=== PATIENT | female | born 1985 | race Caucasian/White ===

== ENCOUNTER 2022-12-02 13:16 | Emergency (ER) | payer BC, SELFPAY ==
[2022-12-02 13:25] VITALS: BP 119/75; PULSE 72; RESP 20; TEMP 37; O2SAT 99; BMI 29.7
--- NOTE | 2022-12-02 13:43 | EXP.UTC ---
Discharge Plan Disposition Patient Disposition: Home, Self-Care Condition: Good Prescriptions Prescriptions: No Action fluoxetine 40 mg capsule 40 mg PO DAILY Patient Comments: TAKE 1 CAPSULE BY MOUTH EVERY MORNING lamotrigine 100 mg tablet 100 mg PO DAILY Patient Comments: TAKE 1 TABLET BY MOUTH TWICE DAILY Referrals Follow up/Referrals: Provider,Referral, MD [Primary Care Provider] - See instructions Activity Restrictions/Add. Instructions Additional Instructions/Restrictions: Call tomorrow and make appointment with Family Doctor Return if needed Straight to ER if any worsening of symptoms or pain Do bland diet avoid greasy and spicy foods Clinical Impressions Clinical Impression: Abdominal discomfort Instructions Patient Instructions: Acute Abdominal Pain, DI for Abdominal Pain-Adult Discharge ED Provider: Ariela Weinberg [facility] [place] HPI General Stated complaint: abd pain Mode of Arrival: Ambulatory Source of Information: Patient Limitations: No Limitations Time Seen by Provider: 12/02/22 13:43 Description of Symptoms (Recalled from Triage Doc. by RN): PATIENT C/O UPPER ABDOMINAL PAIN X 1 MONTHS BUT IS WORSE TODAY. SHE DESCRIBES PAIN SHARP AND INTERMITTEN. SHE STATES SHE DOES HAVE SOME NAUSEA WITH IT. DENIES VOMITING AND DIARRHEA. SHE STATES SHE HAS TAKEN ACID REFLUX MEDICATION FOR IT AND IT DOES HELP AT TIMES. PAIN IS SOMETIMES WORSE WITH SITTING. HEENT Symptoms (Recalled from RN notes): No Resp Symptoms (Recalled from RN notes): No Skin Symptoms (Recalled from RN notes): No MS Symptoms (Recalled from RN notes): No Functional Status (Recalled from RN notes): WNL History of Present Illness Provider Complaint: Patient states that she has been having pain in her right upper quad on and off for about a month and half States that at times it is worse than others States that she started taking antacids and it did seem to help some and the pain went away States that for the last couple of days it has been coming and going again worse at times when she sitting States that she is not sure but feels like it feels better at times with what she eats States that today it was still hurting on and off so she came in to get checked Denies radiation anywhere Denies N/V Denies diarrhea Related Data Home Medications Medication Instructions Recorded Confirmed fluoxetine 40 mg capsule 40 mg PO DAILY Anxiety 12/02/22 12/02/22 lamotrigine 100 mg tablet 100 mg PO DAILY Depression 12/02/22 12/02/22 Allergies Allergy/AdvReac Type Severity Reaction Status Date / Time No Known Allergies Allergy Verified 12/02/22 13:38 Worker's Comp Is this a Worker's Comp case?: No [facility] Disclaimer: The information contained in this section may have been updated after the patient was seen, as this information can be updated by other users. Medical History (Updated 12/02/22 @ 14:02 by Ariela Weinberg APRN) Anxiety Depression UTI (urinary tract infection) Surgical History (Updated 12/02/22 @ 13:40 by Batsheva Kwok RN) History of section Social History Smoking Status: Unknown if ever smoked alcohol intake: never current occupational status: employed Travel in the last 8 weeks: None ROS Obtained: Yes All systems reviewed & no additional complaints except as documented and Yes Systems reviewed as appropriate & no additional complaints except as documented Constitutional Constitutional: Reports system reviewed and no additional complaints, except as documented, Reports as per HPI, Denies body ache, Denies chills and Denies fever(s) ENT Ears, Nose, Mouth, and Throat: Reports system reviewed and no additional complaints, except as documented and Reports as per HPI Cardiovascular Cardiovascular: Reports system reviewed and no additional complaints, except as documented and Reports as per HPI Respiratory Respiratory: Reports system reviewed and no additional complaints, except as do
[2022-12-02 14:12] VITALS: BP 119/75; PULSE 72; RESP 20; TEMP 37; O2SAT 99
== END 2022-12-02 14:14 | disposition home or self-care (01) ==
PROVIDERS: Emergency Provider Nurse Practitioner
DX: R10.11 Right upper quadrant pain (principal); F41.9 Anxiety disorder, unspecified; F32.A Depression, unspecified
CPT/HCPCS: 99204; 99212; G0463

== ENCOUNTER → 2022-12-03 16:09 | Outpatient (CLI) | payer BC, SELFPAY ==
[2022-12-03 17:37] LABS: Basophils % 0.5 % (0.1-2.0); Eosinophils # 0.1 K/mm3 (0.0-0.4); Hematocrit 42.4 % (37.0-47.0); Lymphocytes # 1.9 K/mm3 (0.7-4.5); Lymphocytes % 32.9 % (10-50); Mean Corpuscular Hemoglobin 31.8 pg (27.0-31.2); Mean Corpuscular Volume 96.4 fl (81-99); Mean Platelet Volume 7.9 fl (7.4-10.4); Monocytes # 0.3 K/mm3 (0.1-1.0); Monocytes % 5.3 % (1.7-9.3); Neutrophils # 3.4 K/mm3 (1.8-7.8); Neutrophils % 59.3 % (37.0-80.0); Platelet Count 267 K/mm3 (142-424); White Blood Count 5.7 K/mm3 (4.8-10.8)
[2022-12-03 18:46] LABS: Alanine Aminotransferase 22 U/L (12-78); Albumin Level 4.6 g/dl (3.5-5.0); Albumin/Globulin Ratio 1.6 (1.1-1.8); Alkaline Phosphatase 87 U/L (38-126); Anion Gap 13.4 mEq/L (5-15); Aspartate Amino Transferase 23 U/L (14-36); Bilirubin,Total 0.3 mg/dl (0.2-1.3); Blood Urea Nitrogen 15 mg/dl (7-17); Calcium 8.9 mg/dl (8.4-10.2); Carbon Dioxide 31 mmol/L (22.0-30.0); Chloride 101 mmol/L (98-107); Estimated Glomerular Filt Rate 70 ml/min (>60); GFR (African American) 85 ML/MIN (>60); Globulin 2.8 g/dL (1.3-3.2); Glucose 99 mg/dl (74-100); Potassium 4.4 mmoL/L (3.5-5.1); Sodium 141 mmol/L (136-145); Total Protein,Serum 7.4 g/dl (6.3-8.2)
[2022-12-06 18:24] LABS: Lamotrigine (Lamictal) 4.2 ug/mL (2.0-20.0)
== END ==
PROVIDERS: PCP Nurse Practitioner Family; Visit Provider Nurse Practitioner Family
DX: R10.9 Unspecified abdominal pain (principal); F39 Unspecified mood [affective] disorder
CPT/HCPCS: 80053; 80168; 85025; 87086

== ENCOUNTER → 2022-12-05 07:33 | Outpatient (CLI) | payer BC, SELFPAY ==
--- NOTE | 2022-12-05 07:43 | US_ITS ---
FINAL REPORT CLINICAL HISTORY: abd pain FINDINGS: RIGHT UPPER QUADRANT ULTRASOUND Sonographic images of the right upper quadrant were obtained. The pancreas is partially obscured.The liver has an unremarkable appearance. There is a phrygian cap on the gallbladder. There is an echogenic focus within the phrygian cap consistent with a gallstone. A small amount of sludge is present. The common duct is normal. Limited images of the right kidney are normal. IMPRESSION: Gallstone within a phrygian cap with a small amount of sludge. Reviewed, Interpreted and Dictated by Andres Gerber MD Transcribed by Ana Spear Authenticated and [facility]
== END ==
LOC: RAD 07:36
PROVIDERS: PCP Nurse Practitioner Family; Visit Provider Nurse Practitioner Family
DX: R10.9 Unspecified abdominal pain (principal)
CPT/HCPCS: 76705

== ENCOUNTER 2022-12-25 07:42 | Day surgery (SDC) | payer BC, SELFPAY ==
[2022-12-25 08:17] VITALS: BP 117/55; PULSE 71; RESP 18; TEMP 36.7; O2SAT 95; BMI 29.2
--- NOTE | 2022-12-25 08:34 | HMH.SCOPE ---
Procedure: Date: 12/25/22 Patient Date of :: 1985 Procedure Performed:: Esophagogastroduodenoscopy with biopsy Indications:: Gastroesophageal reflux Performing Provider:: Lb Perez MD Referring Provider:: . Sedation:: Monitored anesthesia care Procedure:: After informed consent was obtained the patient was taken to the endoscopy suite. Sedation ensued after the patient was transferred to the left lateral decubitus position. Pulse, blood pressure, and oxygen saturation were monitored throughout the procedure. The endoscope was advanced beyond the duodenal bulb. Retroflexion within the gastric lumen was accomplished. The gastroscope was carefully removed and the patient was transferred to recovery in stable condition. Please see findings and specimens below for detail. Findings:: Gastroesophageal junction at 36 cm Tiny/shallow sliding hiatal hernia Mild streaking distal gastritis Specimens:: Antral biopsy Recommendations:: Follow-up pathology Discussion with regard to cholecystectomy will be ongoing Complications:: No immediate Estimated blood obtained (mL): 1 Colonoscopy Component Colonoscopy Component Was a colonoscopy performed during today's procedure?: No
[2022-12-25 08:44] LABS: Urine Pregnancy, HCG Qual. Negative (Negative)
--- NOTE | 2022-12-25 08:48 | EXP.ANES.CKL ---
[facility] Disclaimer: The information contained in this section may have been updated after the patient was seen, as this information can be updated by other users. Medical History Anxiety Depression UTI (urinary tract infection) Surgical History History of [place] teeth extracted Family History (Updated 12/25/22 @ 08:16 by Rich Call RN) Other Family history of cancer Family history of myocardial infarction Social History (Updated 12/25/22 @ 08:17 by Rich Call RN) Smoking Status: Former smoker alcohol intake: never substance use type: denies use current occupational status: employed Travel in the last 8 weeks: None [facility] Anesthesia Checklist Patient Identification Patient Identification: Verbal (Name & ) Structural Data Admitted From: Home Planned Operative Procedure/s: egd Consent for Planned Operative Procedure(s) Verified: Yes Airway Assessment Mallampati Score:: Class I C-Spine Mobility Assessed: Yes TMJ Mobility Assessed: Yes Dentition: Good Dentition Neurological Assessment Level of Consciousness: Awake, Alert and Appropriate Anesthesia Plan Anesthesia Risk discussed: Yes Anesthesia Plan: Verified ASA Class: I Anesthesia Type: MAC
[2022-12-25 08:52] VITALS: O2SAT 99
[2022-12-25 09:07] VITALS: BP 95/65; PULSE 67; RESP 16; O2SAT 95
[2022-12-25 09:17] VITALS: BP 97/57; PULSE 67; RESP 16; O2SAT 95
[2022-12-25 09:27] VITALS: BP 98/53; PULSE 68; RESP 16; O2SAT 98
[2022-12-25 09:37] VITALS: BP 109/69; PULSE 69; RESP 17; O2SAT 98
== END 2022-12-25 09:40 | disposition home or self-care (01) ==
PROVIDERS: PCP Nurse Practitioner Family; Visit Provider Surgery
PROC: 0DJ08ZZ Inspection of Upper Intestinal Tract, Via Natural or Artificial Opening Endoscopic (ICD-10-PCS; CPT 43235; principal; 2022-12-25 08:30)
DX: K21.9 Gastro-esophageal reflux disease without esophagitis (principal); K31.9 Disease of stomach and duodenum, unspecified; K44.9 Diaphragmatic hernia without obstruction or gangrene
CPT/HCPCS: 43239; 81025

== ENCOUNTER → 2023-01-09 09:19 | Outpatient (CLI) | payer BC, SELFPAY ==
[2023-01-09 09:45] LABS: Basophils % 0.2 % (0.1-2.0); Eosinophils # 0.1 K/mm3 (0.0-0.4); Eosinophils % 1.7 % (0.1-12.0); Hematocrit 41.7 % (37.0-47.0); Hemoglobin 13.3 g/dL (12.2-16.2); Lymphocytes # 1.4 K/mm3 (0.7-4.5); Lymphocytes % 19.6 % (10-50); Mean Corpuscular HGB Conc 31.8 g/dL (31.8-35.4); Mean Corpuscular Hemoglobin 31.5 pg (27.0-31.2); Mean Platelet Volume 6.8 fl (7.4-10.4); Monocytes # 0.3 K/mm3 (0.1-1.0); Monocytes % 4.5 % (1.7-9.3); Neutrophils # 5.4 K/mm3 (1.8-7.8); Platelet Count 206 K/mm3 (142-424); Red Blood Count 4.21 M/mm3 (4.20-5.40); White Blood Count 7.3 K/mm3 (4.8-10.8)
[2023-01-09 09:46] LABS: Urine Pregnancy, HCG Qual. Negative (Negative)
[2023-01-09 10:42] LABS: Alanine Aminotransferase 18 U/L (12-78); Albumin Level 4.4 g/dl (3.5-5.0); Albumin/Globulin Ratio 1.6 (1.1-1.8); Alkaline Phosphatase 72 U/L (38-126); Anion Gap 15.5 mEq/L (5-15); Aspartate Amino Transferase 25 U/L (14-36); Bilirubin,Total 0.4 mg/dl (0.2-1.3); Blood Urea Nitrogen 13 mg/dl (7-17); Calcium 8.8 mg/dl (8.4-10.2); Carbon Dioxide 24 mmol/L (22.0-30.0); Chloride 106 mmol/L (98-107); Estimated Glomerular Filt Rate 80 ml/min (>60); GFR (African American) 97 ML/MIN (>60); Globulin 2.7 g/dL (1.3-3.2); Glucose 108 mg/dl (74-100); Potassium 4.5 mmoL/L (3.5-5.1); Sodium 141 mmol/L (136-145); Total Protein,Serum 7.1 g/dl (6.3-8.2)
== END ==
PROVIDERS: PCP Nurse Practitioner Family; Visit Provider Surgery
DX: R10.9 Unspecified abdominal pain (principal); K80.20 Calculus of gallbladder without cholecystitis without obstruction
CPT/HCPCS: 36415; 80053; 81025; 85025

== ENCOUNTER 2023-01-10 10:57 | Day surgery (SDC) | payer BC, SELFPAY ==
[2023-01-10] VITALS (11 sets, daily range): BP systolic 116–138; BP diastolic 66–84; PULSE 73–100; RESP 14–18; TEMP 36.1–43; O2SAT 94–100; BMI 29.2
--- NOTE | 2023-01-10 11:59 | P.PNANES_ITS ---
[facility] Disclaimer: The information contained in this section may have been updated after the patient was seen, as this information can be updated by other users. Medical History Anxiety Depression UTI (urinary tract infection) Surgical History History of History of esophagogastroduodenoscopy (EGD) [place] teeth extracted Family History Other Family history of cancer Family history of myocardial infarction Social History (Updated 01/10/23 @ 11:12 by Ana Luke RN) Smoking Status: Never smoker alcohol intake: never substance use type: denies use current occupational status: employed Travel in the last 8 weeks: None [facility] Anesthesia Checklist Patient Identification Patient Identification: Arm Band Structural Data Admitted From: Home Planned Operative Procedure/s: Laparoscopic Cholecystectomy Consent for Planned Operative Procedure(s) Verified: Yes Verified Documents: Surgical Consent and History and Physical NPO Status Verified Time NPO: 00:00 Additional verifications Anesthesia Reactions: No Hx Blood Transfusions: No Airway Assessment Mallampati Score:: Class I C-Spine Mobility Assessed: Yes TMJ Mobility Assessed: Yes Dentition: Good Dentition Neurological Assessment Level of Consciousness: Awake and Alert Anesthesia Plan Anesthesia Risk discussed: Yes Anesthesia Plan: Verified ASA Class: I Anesthesia Type: General
--- NOTE | 2023-01-10 14:46 | P.OP_ITS ---
Date of procedure: 01/10/23 Pre-op Diagnosis:: Chronic calculus cholecystitis Post-op Diagnosis:: Same Procedure performed:: Laparoscopic cholecystectomy Surgeon:: Lb Perez MD Anesthesia: GETSal Estimated blood loss (mL): 15 Operative findings:: Severe pericholecystic fat stranding Fairly severe infundibular thickening Operative note:: After informed consent was obtained, the patient was taken to the operating room and placed in the supine position. General anesthesia was induced and the abdomen was prepped and draped in a sterile fashion. After infiltration with local anesthetic an infraumbilical incision was made. A Veress needle was placed in position. The abdomen was insufflated. A 5 mm optical trocar was placed in position. Under direct visualization, a 12 mm trocar was placed in the subxiphoid position and 2 additional 5 mm trocars were placed in the right upper quadrant. The gallbladder was elevated up and over the liver margin. The tissue around the cystic duct was carefully dissected. 3 clips were placed p roximally and the duct was transected with harmonic matthias. Harmonic matthias were then utilized to dissect the gallbladder away from the liver margin with careful attention to the control of the cystic artery. The gallbladder was placed in a retrieval bag and removed through the subxiphoid trocar site. The right upper quadrant was thoroughly irrigated. No active bleeding or bile leak was noted. Fascia at the subxiphoid trocar site was reapproximated utilizing the NeoClose device. The remaining trocars were removed. All wounds were irrigated and skin was closed with 4-0 Monocryl in a subcuticular fashion. Steri-Strips were applied. The patient's anesthetic agents were reversed and extubation was completed prior to transfer to recovery in stable condition. Condition: stable Disposition: PACU Specimens:: Gallbladder and contents Complications:: No immediate
--- NOTE | 2023-01-10 15:21 | P.PNANES_ITS ---
[facility] Anesthesia Record Part I Anesthesia Record I Intake, IV Amount: 1,100 Hydration: Adequate Estimated blood loss (mL): 15 Urine output (mL): 0 Blood Products used (#): none Blood Pressure: 138/84 SaO2: 96 Pulse Rate: 87 Airway Patency: Patent Respiratory Rate: 18 Temperature: 97 F Patient is:: Drowsy and Stable Stable to PACU at:: 14:55
--- NOTE | 2023-01-11 13:39 | P.PNANES_ITS ---
[facility] Anesthesia Record Part II Anesthesia Record Part II Discharge Time: 15:35 Destination: Surgical Day Care (OP Surgery) PACU nurse assessment reviewed?: Yes Patient Condition:: Good Anesthesia Complications:: None Swallowing reflex intact?: Yes Airway Patency: Patent Cyanosis?: No Blood Pressure: 117/75 SaO2: 98 Respiratory Rate: 17 Pulse Rate: 83 Temperature: 97.6 F Mental Status: Alert & Oriented Pain level:: 6 Nausea and/or vomitting:: None Intake, IV Amount: 0 Hydration: Adequate
[2023-01-11 13:40] VITALS: BP 117/75; PULSE 83; RESP 17; TEMP 36.4; O2SAT 98
== END 2023-01-10 16:13 | disposition home or self-care (01) ==
PROVIDERS: PCP Nurse Practitioner Family; Visit Provider Surgery
PROC: 0FT44ZZ Resection of Gallbladder, Percutaneous Endoscopic Approach (ICD-10-PCS; CPT 47562; principal; 2023-01-10 12:15)
DX: K80.10 Calculus of gallbladder with chronic cholecystitis without obstruction (principal)
CPT/HCPCS: 47562; 96374; J2405

== ENCOUNTER 2023-08-21 09:21 | Emergency (ER) | payer BC, SELFPAY ==
[2023-08-21 09:22] VITALS: BP 104/60; PULSE 95; RESP 18; TEMP 36.7; O2SAT 98; BMI 32.2
[2023-08-21 09:30] VITALS: BP 104/60; PULSE 103; O2SAT 97
--- NOTE | 2023-08-21 09:48 | ED_ITS ---
Discharge Plan Disposition Patient Disposition: Home, Self-Care Condition: Good Prescriptions Prescriptions: No Action Classic 28 mg iron- 800 mcg tablet 1 tab PO DAILY fluoxetine 40 mg capsule 40 mg PO DAILY Patient Comments: TAKE 1 CAPSULE BY MOUTH EVERY MORNING lamotrigine 100 mg tablet 100 mg PO BID Patient Comments: TAKE 1 TABLET BY MOUTH TWICE DAILY Referrals Follow up/Referrals: Meme Cali APRN [Primary Care Provider] - See instructions Activity Restrictions/Add. Instructions Additional Instructions/Restrictions: You were evaluated in the ER. You are appropriate for discharge at this time. Continue monitoring for heavy vaginal flow. Take ibuprofen 800 mg every 8 hours for 5 days. This was recommended by our OB for management of your symptoms. Make an appointment with your OB for follow-up within the next week to repeat quantitative hCG. Your quantitative hCG today was 256. Return to the ER with any new, worsening, or otherwise concerning symptoms. Clinical Impressions Clinical Impression: Vaginal bleeding Stand Alone Forms Stand Alone Forms: Work/School Release Instructions Patient Instructions: DI for Vaginal Bleeding Discharge ED Provider: Roc Hassan General Adult HPI General Chief complaint: Vaginal Bleeding Stated complaint: continuous vaginal bleeding Time Seen by Provider: 08/21/23 09:40 History of Present Illness HPI narrative: 38-year-old female G5, P2 presents to the ER with concerns of heavy vaginal bleeding. Patient was approximately 14 weeks and experienced a miscarriage requiring D&C which was performed on August 11 at [facility]. Patient states she has had some vaginal bleeding since that time, it increased in the last 24 hours, and this morning she started passing large, large volume clots. Patient states she is soaking through pads rapidly. She is not having any dizziness or lightheadedness but is having pelvic cramping. No other associated symptoms at this time. Related Data Home Medications Medication Instructions Recorded Confirmed fluoxetine 40 mg capsule 40 mg PO DAILY Anxiety 12/02/22 08/21/23 lamotrigine 100 mg tablet 100 mg PO BID Depression 12/03/22 08/21/23 vits no.126-ferrous fum 1 tab PO DAILY Supplement 12/03/22 08/21/23 28 mg iron-folic acid 800 mcg tablet (Classic ) Allergies Allergy/AdvReac Type Severity Reaction Status Date / Time No Known Allergies Allergy Verified 01/16/23 14:51 [facility] Disclaimer: The information contained in this section may have been updated after the patient was seen, as this information can be updated by other users. Medical History (Updated 08/21/23 @ 11:44 by Roc Hassan MD) UTI (urinary tract infection) Depression Anxiety Surgical History (Updated 01/16/23 @ 14:51 by ABHINAV Ochoa) History of laparoscopic cholecystectomy History of esophagogastroduodenoscopy (EGD) [place] teeth extracted History of Family History Other Family history of cancer Family history of myocardial infarction Social History Smoking Status: Never smoker alcohol intake: never substance use type: denies use current occupational status: employed Travel in the last 8 weeks: None ROS Obtained: Yes All systems reviewed & no additional complaints except as documented Constitutional Constitutional: Denies chills, Denies fever(s), Denies headache(s) and Denies weakness Eyes Eyes: Denies change in vision ENT Ears, Nose, Mouth, and Throat: Denies dizziness, Denies headache(s), Denies nasal congestion and Denies sore throat Cardiovascular Cardiovascular: Denies chest pain, Denies dyspnea and Denies leg edema Respiratory Respiratory: Denies cough and Denies dyspnea Gastrointestinal Gastrointestingal: Denies constipation, diarrhea, nausea or vomiting Genitourinary Female Genitourinary: Denies dysuria, Reports pelvic pain and Reports other (Vaginal bleeding with clots) Musculoskeletal Musculoskeletal: Denies arthralgias, Denies myalgias, Denies numbness and Denies tingling Integumentary/Breasts Skin/Breast: Denies change in pigmentation Neurologic Neurologic: Denies dizziness, Denies headache(s), Denies numbness, Denies tingling and Denies weakness Physical Exam General General appearance: alert and in no apparent distress Head Head exam: atraumatic and normocephalic Eye Eye exam: Present PERRL and EOMI ENT ENT exam: Present mucous membranes moist Neck Neck exam: Present normal inspection and full ROM Chest Chest inspection: Present symmetric chest wall rise Respiratory Respiratory exam: Present normal lung sounds bilaterally; Absent respiratory distress, wheezes or stridor Cardiovascular Cardiovascular exam: Present regular rate and normal rhythm Abdominal Exam Abdominal exam: Present soft and tenderness (Mild suprapubic tenderness); Absent distention, guarding or rebound External exam: Present normal external exam Speculum exam: Present vaginal bleeding (Clots, no brisk red bleeding, no findings of vaginal injury) Extremities Exam Extremities exam: Present full ROM Neurological Exam Neurological exam: Present alert and oriented X3; Absent motor sensory deficit Psychiatric Psychiatric exam: Present normal affect and normal mood Skin Skin exam: Present warm and dry Medical Decision Making Mychal Inquiry Pt receiving controlled substance: No Vital Signs: 08/21/23 09:22 08/21/23 09:30 08/21/23 10:15 Temperature 98.0 F Temperature Source Oral Pulse Rate 103 H 77 Pulse Rate [Right] 95 H Respiratory Rate 18 Blood Pressure 104/60 L 118/75 Blood Pressure [Right Arm] 104/60 L Blood Pressure Mean [Right Arm] 74 Blood Pressure Source [Right Arm] Automatic Cuff 02 Sat by Pulse Oximetry 98 97 96 Oxygen Delivery Method Room Air Room Air Room Air 08/21/23 10:30 08/21/23 11:49 Temperature 98.0 F Temperature Source Pulse Rate 68 68 Pulse Rate [Right] Respiratory Rate 13 Blood Pressure 111/64 111/64 Blood Pressure [Right Arm] Blood Pressure Mean [Right Arm] Blood Pressure Source [Right Arm] 02 Sat by Pulse Oximetry 96 Oxygen Delivery Method Room Air Room Air Lab Data Lab Results 08/21/23 09:34: WBC 7.2, RBC 3.39 L, Hgb 11.0 L, Hct 34.2 L, MCV 100.8 H, MCH 32.5 H, MCHC 32.2, RDW 13.6, Plt Count 413, MPV 7.5, Neut % (Auto) 69.0, Lymph % (Auto) 23.2, Robertson % (Auto) 4.8, Eos % (Auto) 2.4, Baso % (Auto) 0.6, Neut # (Auto) 5.0, Lymph # (Auto) 1.7, Robertson # (Auto) 0.4, Eos # (Auto) 0.2, Baso # (Auto) 0.0, PT 10.2, INR 0.94, APTT 27.1, Sodium 137, Potassium 4.1, Chloride 105, Carbon Dioxide 25, Anion Gap 11.1, BUN 7, Creatinine 0.70, Estimated Creat Clear 127, Estimated GFR 93, Est GFR ( Amer) 113, Glucose 94, Calcium 8.7, Total Bilirubin 0.7, AST 29, ALT 18, Alkaline Phosphatase 87, Total Protein 6.9, Albumin 4.0, Globulin 2.9, Albumin/Globulin Ratio 1.4, HCG, Quant 256 H 08/21/23 10:20: Blood Type A Positive, Antibody Screen Negative 08/21/23 09:34 08/21/23 09:34 Orders (Tests/Meds): ED MEDICATIONS Discontinued Medications Generic Name Dose Route Start Last Admin Trade Name Jacquie PRN Reason Stop Dose Admin Acetaminophen 500 mg 08/21/23 09:50 08/21/23 09:55 Acetaminophen 500mg Tab PO 08/21/23 09:51 500 mg ONCE ONE Administration Ibuprofen 600 mg 08/21/23 09:50 08/21/23 09:55 Ibuprofen 600 Mg Tablet PO 08/21/23 09:51 600 mg ONCE ONE Administration ORDERS Category Date Time Status Type and Screen Stat BBK 08/21/23 10:20 Completed Beta HCG, Quant [HCG,Quantitative] Stat Lab 08/21/23 09:34 Completed CBC w/Auto Diff [Complete Blood Count Auto Diff] Stat Lab 08/21/23 09:34 Completed CMP [Comprehensive Metabolic Panel] Stat Lab 08/21/23 09:34 Completed PT INR [Prothrombin Time INR] Stat Lab 08/21/23 09:34 Completed PTT [Activated Partial Thrombo Time] Stat Lab 08/21/23 09:34 Completed Medical Decision Narrative: In summary, this 38year old female presents to the emergency department today with vaginal bleeding, passage of clots in the setting of recent D&C which is a comorbidity of current condition and increases her overall risk of postoperative complications. On initial evaluation patient is hemodynamically stable, afebrile, resting comfortably, mild suprapubic tenderness without rebound or guarding, nonacute abdomen, vaginal bleeding with blood and clots from the cervical os, no other obvious abnormality on pelvic exam. Differential diagnosis includes but is not limited to postoperative bleeding, anemia, menorrhagia, coagulopathy. Based on these concerns, I ordered basic labs, type and screen, coag studies. Patient received Tylenol, ibuprofen for treatment. Labs personally reviewed demonstrate mild anemia with hemoglobin 11, no actionable abnormalities on CMP, quantitative hCG 256, unfortunately patient does not have a prior hCG available to be viewed either in her [facility], per chart from [facility], or in our system. On reassessment patient continues having some bleeding but is comfortable and states her pain is improved since receiving medications. I discussed this case with Dr. Montenegro with OB. She recommends repeat hcg weekly, expectant management. She explained that she is more concerned about rapid flow than she is with passing clots. She also recommended ibuprofen 800 mg every 8 hours for the next 5 days to help with pain and bleeding. She recommended 1 week follow- up with patient's OB or to return here. She also gave recommendations for the patient to return if she becomes symptomatic such as lightheaded, short of breath. I explained all these recommendations to the patient and placed them in the written discharge summary. She is comfortable with this plan. Patient was given instructions on symptomatic management, follow up instructions, and return precautions for the emergency department. Patient indicated understanding and was discharged in stable condition. Critical Care Critical Care Time Critical Care Time: No
[2023-08-21 09:53] LABS: Basophils % 0.6 % (0.1-2.0); Eosinophils # 0.2 K/mm3 (0.0-0.4); Eosinophils % 2.4 % (0.1-12.0); Hematocrit 34.2 % (37.0-47.0); Lymphocytes # 1.7 K/mm3 (0.7-4.5); Lymphocytes % 23.2 % (10-50); Mean Corpuscular HGB Conc 32.2 g/dL (31.8-35.4); Mean Corpuscular Hemoglobin 32.5 pg (27.0-31.2); Mean Corpuscular Volume 100.8 fl (81-99); Mean Platelet Volume 7.5 fl (7.4-10.4); Monocytes # 0.4 K/mm3 (0.1-1.0); Monocytes % 4.8 % (1.7-9.3); Platelet Count 413 K/mm3 (142-424); Red Blood Count 3.39 M/mm3 (4.20-5.40); Red Cell Distribution Width 13.6 % (11.5-17.5); White Blood Count 7.2 K/mm3 (4.8-10.8)
[2023-08-21] MEDS: IBUPROFEN 600 MG TABLET PO (09:55)
[2023-08-21] MEDS: ACETAMINOPHEN 500MG TAB 500 MG PO (09:55)
[2023-08-21 10:00] LABS: Activated Partial Thrombo Time 27.1 seconds (22.8-30.6); Alanine Aminotransferase 18 U/L (12-78); Albumin/Globulin Ratio 1.4 (1.1-1.8); Alkaline Phosphatase 87 U/L (38-126); Anion Gap 11.1 mEq/L (5-15); Aspartate Amino Transferase 29 U/L (14-36); Bilirubin,Total 0.7 mg/dl (0.2-1.3); Blood Urea Nitrogen 7 mg/dl (7-17); Calcium 8.7 mg/dl (8.4-10.2); Carbon Dioxide 25 mmol/L (22.0-30.0); Chloride 105 mmol/L (98-107); Creatinine Clearance Estimated 127 mL/min (50-200); Estimated Glomerular Filt Rate 93 ml/min (>60); GFR (African American) 113 ML/MIN (>60); Globulin 2.9 g/dL (1.3-3.2); Glucose 94 mg/dl (74-100); INR 0.94 (0.9-1.1); Potassium 4.1 mmoL/L (3.5-5.1); Prothrombin Time 10.2 seconds (10.1-12.5); Sodium 137 mmol/L (136-145); Total Protein,Serum 6.9 g/dl (6.3-8.2)
[2023-08-21 10:15] VITALS: BP 118/75; PULSE 77; O2SAT 96
[2023-08-21 10:17] LABS: HCG,Quantitative 256 mIU/ml (0-5.42)
--- NOTE | 2023-08-21 10:26 | PC.NURSE ---
assisted with vaginal exam, pt tolerated well
[2023-08-21 10:30] VITALS: BP 111/64; PULSE 68; O2SAT 96
--- NOTE | 2023-08-21 11:19 | PC.NURSE ---
called OBGYN- Dr Alejandre is on today, gave staff pt's name for her to return call to Dr. Hassan.
--- NOTE | 2023-08-21 11:32 | PC.NURSE ---
Dr. Hassan s/w Dr. Alejandre
[2023-08-21 11:49] VITALS: BP 111/64; PULSE 68; RESP 13; TEMP 36.7; O2SAT 96
== END 2023-08-21 11:59 | disposition home or self-care (01) ==
PROVIDERS: Emergency Provider Emergency Medicine; PCP Nurse Practitioner Family
DX: N93.9 Abnormal uterine and vaginal bleeding, unspecified (principal); R10.819 Abdominal tenderness, unspecified site
CPT/HCPCS: 80053; 84702; 85025; 85610; 85730; 86850; 99283

== ENCOUNTER 2023-12-08 19:59 | Emergency (ER) | payer BC, SELFPAY ==
[2023-12-08 20:01] VITALS: BP 126/75; PULSE 82; RESP 18; TEMP 36.8; O2SAT 96; BMI 31.2
--- NOTE | 2023-12-08 20:14 | XR_ITS ---
PROCEDURE INFORMATION: Exam: XR Right Foot Exam date and time: 12/08/2023 8:26 PM Age: 38 years old Clinical indication: Pain; Ankle and foot; Right; Additional info: Fall TECHNIQUE: Imaging protocol: Radiologic exam of the right foot. Views: 1 or 2 views. COMPARISON: CR Ankle R 12/08/2023 8:24 PM FINDINGS: Bones/joints: Normal. Soft tissues: Normal. IMPRESSION: No acute findings.
--- NOTE | 2023-12-08 20:14 | XR_ITS ---
PROCEDURE INFORMATION: Exam: XR Right Ankle Exam date and time: 12/08/2023 8:24 PM Age: 38 years old Clinical indication: Pain; Ankle; Right; Additional info: Fall TECHNIQUE: Imaging protocol: Radiologic exam of the right ankle. Views: 3 or more views. COMPARISON: No relevant prior studies available. FINDINGS: Bones/joints: Normal. Soft tissues: Normal. IMPRESSION: No acute findings.
--- NOTE | 2023-12-08 20:18 | HMH.EDGENADL ---
Discharge Plan Disposition Patient Disposition: Home, Self-Care Condition: Good Prescriptions Prescriptions: No Action Classic 28 mg iron- 800 mcg tablet 1 tab PO DAILY fluoxetine 40 mg capsule 40 mg PO DAILY Patient Comments: TAKE 1 CAPSULE BY MOUTH EVERY MORNING lamotrigine 100 mg tablet 100 mg PO BID Patient Comments: TAKE 1 TABLET BY MOUTH TWICE DAILY Referrals Follow up/Referrals: Selene Mae DPM [Staff Physician] - See instructions (Right foot injury) Meme Cali APRN [Primary Care Provider] - See instructions Activity Restrictions/Add. Instructions Additional Instructions/Restrictions: I have referred you to podiatry for further evaluation. While there is no bony injury you could have injured the soft tissue or connective structures. Bear weight as tolerated with crutches. Return to ER for any worsening signs or symptoms as needed Clinical Impressions Clinical Impression: Injury of foot, right Qualifiers: Encounter type: initial encounter Qualified Code(s): S99.921A - Unspecified injury of right foot, initial encounter Print Language Print Language: Kiswahili Discharge ED Provider: De Dempsey General Adult HPI <KAYLEEN Mallory - Last Filed: 12/08/23 22:31> General Chief complaint: Extremity Injury, Lower Stated complaint: AO 12-08-23 fell and hurt right foot Time Seen by Provider: 12/08/23 20:12 History of Present Illness HPI narrative: Patient presents for evaluation of a right foot injury. Patient reports that she missed a step and slightly turning her ankle but causing an injury to the the lateral upper aspect of her foot. Patient is able to bear weight however it is very painful. Related Data Home Medications ?Medication ?Instructions ?Recorded ?Confirmed fluoxetine 40 mg capsule 40 mg PO DAILY Anxiety 12/02/22 08/21/23 lamotrigine 100 mg tablet 100 mg PO BID Depression 12/03/22 08/21/23 vits no.126-ferrous fum 1 tab PO DAILY Supplement 12/03/22 08/21/23 28 mg iron-folic acid 800 mcg tablet (Classic ) Allergies Allergy/AdvReac Type Severity Reaction Status Date / Time No Known Allergies Allergy Verified 01/16/23 14:51 PFSH <KAYLEEN Mallory - Last Filed: 12/08/23 22:31> [facility] Disclaimer: The information contained in this section may have been updated after the patient was seen, as this information can be updated by other users. Medical History (Updated 12/08/23 @ 22:25 by KAYLEEN Mallory) UTI (urinary tract infection) Depression Anxiety Surgical History (Updated 01/16/23 @ 14:51 by ABHINAV Ochoa) History of laparoscopic cholecystectomy History of esophagogastroduodenoscopy (EGD) [place] teeth extracted History of Family History Other Family history of cancer Family history of myocardial infarction Social History Smoking Status: Never smoker alcohol intake: never substance use type: denies use current occupational status: employed Travel in the last 8 weeks: None <KAYLEEN Mallory - Last Filed: 12/08/23 22:31> ROS Obtained: Yes Systems reviewed as appropriate & no additional complaints except as documented Physical Exam <KAYLEEN Mallory - Last Filed: 12/08/23 22:31> General General appearance: alert and in no apparent distress Respiratory Respiratory exam: Present normal lung sounds bilaterally Cardiovascular Cardiovascular exam: Present regular rate and normal rhythm Expanded Lower Extremity Exam Right: Top foot image: 1. Ecchymosis edema and tenderness to palpation without any palpable bony deformity Neurological Exam Neurological exam: Present alert and oriented X3 Medical Decision Making <KAYLEEN Mallory - Last Filed: 12/08/23 22:31> [facility] Inquiry Pt receiving controlled substance: No V
--- NOTE | 2023-12-08 20:26 | PC.NURSE ---
provided ice pack for right foot
--- NOTE | 2023-12-08 20:54 | CT_ITS ---
PROCEDURE INFORMATION: Exam: CT Head Without Contrast Exam date and time: 12/08/2023 9:12 PM Age: 38 years old Clinical indication: Injury or trauma; Fall; Blunt trauma (contusions or hematomas); Without loss of consciousness; Additional info: Fall, hit head, headache TECHNIQUE: Imaging protocol: Computed tomography of the head without contrast. Radiation optimization: All CT scans at this facility use at least one of these dose optimization techniques: automated exposure control; mA and/or kV adjustment per patient size (includes targeted exams where dose is matched to clinical indication); or iterative reconstruction. COMPARISON: No relevant prior studies available. FINDINGS: Brain: Normal. No hemorrhage. Unremarkable white matter. No mass effect. Cerebral ventricles: No ventriculomegaly. Paranasal sinuses: Visualized sinuses are unremarkable. No fluid levels. Mastoid air cells: Visualized mastoid air cells are well aerated. Bones: Unremarkable. No acute fracture. Soft tissues: Unremarkable. IMPRESSION: No acute intracranial abnormality.
--- NOTE | 2023-12-08 21:15 | PC.NURSE ---
pt returned to room at this time by radiology
[2023-12-08 22:43] VITALS: BP 126/75; PULSE 82; RESP 18; TEMP 36.8; O2SAT 96
== END 2023-12-08 22:44 | disposition home or self-care (01) ==
PROVIDERS: Emergency Provider Emergency Medicine; PCP Nurse Practitioner Family
DX: S99.921A Unspecified injury of right foot, initial encounter (principal); S09.8XXA Other specified injuries of head, initial encounter; W10.9XXA Fall (on) (from) unspecified stairs and steps, initial encounter; Y92.9 Unspecified place or not applicable
CPT/HCPCS: 70450; 73610; 73620; 99284